=== PATIENT | female | born 1965 | race African-American/Black ===

== ENCOUNTER 2018-09-07 04:30 | Emergency (ER) | payer BC ==
[~2018-09-07] VITALS: Ht 162.6 cm; Wt 63.0 kg
[2018-09-07] MEDS ORDERED: SODIUM CHLORIDE 0.9% 1,000 ML IV ONE (05:24)
[2018-09-07] MEDS ORDERED: ONDANSETRON HCL 4MG/2ML INJ IV STA (05:24)
[2018-09-07] MEDS ORDERED: KETOROLAC 30MG/ML VIAL IV STA (05:24)
[2018-09-07 06:12] LABS: BASOPHILS % 0.9 % (0.0-2.0); EOSINOPHILS % 2.9 % (0.0-5.0); HEMATOCRIT. 41.5 % (36.0-48.0); HEMOGLOBIN. 12.8 g/dL (12.0-16.0); LYMPHOCYTES % 36.1 % (20.0-50.0); MEAN CORPUSCULAR HEMOGLOBIN 23.4 pg (28.0-32.0); MEAN CORPUSCULAR VOLUME 75.6 fL (81.0-99.0); MEAN PLATELET VOLUME 8.4 fl (7.4-10.4); MONOCYTES % 11.6 % (2.0-8.0); NEUTROPHILS % 48.5 % (40.0-76.0); PLATELET 258 x1000/uL (130-400); RED BLOOD CELL COUNT 5.49 mill/uL (4.2-5.4); RED CELL DISTRIBUTION WIDTH 13.9 % (11.6-14.6)
[2018-09-07 06:19] LABS: CHLORIDE 104 mEq/L (98-107)
[2018-09-07 06:34] LABS: CLARITY URINE CLOUDY (CLEAR); COLOR URINE YELLOW (YELLOW); KETONES URINE NEGATIVE (NEGATIVE); LEUKOCYTE ESTERASE URINE 3+ (NEGATIVE); NITRITE URINE POSITIVE (NEGATIVE); OCCULT BLOOD URINE TRACE (NEGATIVE); PROTEIN URINE NEGATIVE (NEGATIVE); SPECIFIC GRAVITY URINE 1.011 (1.005-1.030); UROBILINOGEN URINE 0.2 E.U./dL (0.2-1.0)
[2018-09-07] MEDS ORDERED: IOHEXOL-300 100 ML BOTTLE ONE (09:12)
[2018-09-07 10:34] VITALS: BP 104/62
== END 2018-09-07 10:52 | disposition home or self-care (01) ==
LOC: ER 04:30
DX: N39.0 Urinary tract infection, site not specified (principal); R59.1 Generalized enlarged lymph nodes; Z90.710 Acquired absence of both cervix and uterus
CPT/HCPCS: 36415; 70491; 71045; 80053; 81003; 85025; 87070; 87077; 87086; 87186; 87430; 96374; 96375; 99285; J1885; J2405; J7030; Q9967; 96361